=== PATIENT | male | born 1980 | race Caucasian/White ===

== ENCOUNTER 2020-05-19 23:39 | Emergency (ER) | payer BC ==
[~2020-05-19] VITALS: Ht 200.7 cm; Wt 93.2 kg
[2020-05-19] MEDS ORDERED: ALBU8HFA PO (23:51)
[2020-05-20 00:10] VITALS: BP 128/82
[2020-05-20] MEDS ORDERED: fentaNYL/PF 50MCG/1 ML 2ML syringe ONE (00:19)
[2020-05-20] MEDS ORDERED: LIDOcaine Viscous 15ml cup ONE (00:20)
[2020-05-20] MEDS ORDERED: MIDAZolam 5mg/5ml vial ONE (00:20)
[2020-05-20 01:01] VITALS: BP 122/80
[2020-05-20 01:11] VITALS: BP 126/81
[2020-05-20 01:21] VITALS: BP 137/94
--- NOTE | 2020-05-20 01:43 | NUR ---
PT BACK FROM [facility]
[2020-05-20 01:44] VITALS: BP 118/82
[2020-05-20] MEDS ORDERED: PANT-47 PO (01:46)
== END 2020-05-20 01:53 | disposition home or self-care (01) ==
LOC: ER 23:40
DX: T18.128A Food in esophagus causing other injury, initial encounter (principal); R11.10 Vomiting, unspecified; X58.XXXA Exposure to other specified factors, initial encounter; Y93.89 Activity, other specified; Y92.89 Other specified places as the place of occurrence of the external cause; Y99.8 Other external cause status
CPT/HCPCS: 43247; 99152; 99153; 99285; C1769; C1773; J2250; J3010; 99283; A4620